=== PATIENT | female | born 1985 | race Caucasian/White ===

== ENCOUNTER 2018-11-12 16:42 | Emergency (ER) | payer MEDICAID ==
[~2018-11-12] VITALS: Ht 167.6 cm; Wt 74.5 kg
[2018-11-12 17:40] VITALS: BP 127/69; PULSE 78; RESP 18; Ht 167.6 cm; Wt 74.5 kg
[2018-11-12] MEDS ORDERED: AZIT500T3 PO (18:29)
[2018-11-12] MEDS ORDERED: ACET500C5 PO (18:29)
[2018-11-12] MEDS ORDERED: BISM262O23 PO (18:29)
--- NOTE | 2018-11-12 18:55 | ERD ---
ER Documentation Chief Complaint Chief Complaint epigastric pain and diarrhea x3 days HPI 33-year-old female presents with epigastric pain and diarrhea for last 3 days. She may have had fevers at home but no fever triage patient has vomiting, urinary complaints, . Last menstrual period 2 weeks ago. She possibly ate some bad food. She denies lower abdominal pain. ROS All systems reviewed and are negative except as per history of present illness. Medications Home Meds Active Scripts Acetaminophen* (Tylophen*) 500 Mg Capsule, 1 CAP PO Q6H PRN for PAIN AND OR ELEVATED TEMP, #15 CAP Prov:IVELISSE ANDERS MD 11/12/18 Bismuth Subsalicylate* (Pepto-Bismol*) 262 Mg/15 Ml Oral.susp, 15 ML PO Q3H PRN for DIARRHEA for 5 Days, ML Prov:IVELISSE ANDERS MD 11/12/18 Azithromycin* (Zithromax*) 500 Mg Tablet, 500 MG PO DAILY for 3 Days, TAB Prov:IVELISSE ANDERS MD 11/12/18 FmHx Family History: No diabetes, No coronary disease, No other Physical Exam Vitals Vital Signs Date Temp Pulse Resp B/P (MAP) Pulse Ox O2 O2 Flow FiO2 Time Delivery Rate 11/12/18 98.4 78 18 127/69 98 17:40 (88) Physical Exam Const: No acute distress Head: Atraumatic Eyes: Normal Conjunctiva ENT: Normal External Ears, Nose and Mouth. Neck: Full range of motion. No meningismus. Resp: Clear to auscultation bilaterally Cardio: Regular rate and rhythm, no murmurs Abd: Soft, non tender, non distended. Normal bowel sounds Skin: No petechiae or rashes Back: No midline or flank tenderness Ext: No cyanosis, or edema Neur: Awake and alert Psych: Normal Mood and Affect Procedures/MDM Patient presents with subjective fevers, diarrhea for last 3 or 4 days after possibly eating bad food. She has epigastric pain but has a benign abdomen on exam. She has no signs of appendicitis, peritoneal signs, no tenderness at McBurney's point no Valle sign. Patient will be treated empirically with Zithromax, Pepto-Bismol, Tylenol, fluids, primary care follow-up and return precautions. The patient was stable with no new complaints during the ER course. Clinically, there is no current evidence to suggest meningitis, sepsis, acute abdomen, pneumonia, stroke, acute coronary syndrome, pulmonary embolism, aortic dissection or any other emergent condition appearing to require further evaluation or hospitalization. Patient counseled regarding my diagnostic impression and care plan. Prior to discharge all questions answered. Pt agrees with treatment plan and understands strict return precautions. Pt is instructed to follow up with primary care provider within 24-48 hours. Precautionary instructions provided including instructions to return to the ER if not improving or for any worsening or changing symptoms or concerns. Departure Diagnosis: Primary Impression: Diarrhea Diarrhea type: unspecified type Qualified Codes: R19.7 - Diarrhea, unspecified Condition: Stable Patient Instructions: Treating Diarrhea, Self-Care for Vomiting and Diarrhea Additional Instructions: Cheque otro vez con coe doctor primario en el proximo bell or regresa para mas o nueva simptomas. IVELISSE ANDERS MD Nov 12, 2018 18:55
== END 2018-11-13 18:55 | disposition home or self-care (01) ==
LOC: E/R 16:42
DX: R19.7 Diarrhea, unspecified (principal)
CPT/HCPCS: 99283